=== PATIENT | female | born 1965 | race Caucasian/White ===

== ENCOUNTER 2021-12-22 11:52 | Emergency (ER) | payer BC ==
[2021-12-22 12:07] VITALS: BMI 23.3
[2021-12-22] MEDS ORDERED: BEBTELOVIMAB (EUA) 175 MG/2 ML VIAL IVPUSH ONE (12:45)
[2021-12-22] MEDS ORDERED: ACETAMINOPHEN 1000 MG/100 ML BAG IVPB ONE (12:46)
[2021-12-22] MEDS ORDERED: SODIUM CHLORIDE 0.9% 500 ML INFUS.BAG IV ONE (12:46)
[2021-12-22] MEDS ORDERED: ACETAMINOPHEN INJECTION 100 ML IVPB ONE (13:48)
[2021-12-22 15:33] VITALS: BP 143/89; PULSE 60; TEMP 98.3
== END 2021-12-22 15:33 | disposition home or self-care (01) ==
LOC: JER 11:52 → JCOVINFU 11:52
PROC: 3E033GC Introduction of Other Therapeutic Substance into Peripheral Vein, Percutaneous Approach (ICD-10-PCS; principal; 2021-12-22)
DX: U07.1 COVID-19 (principal)
CPT/HCPCS: 99284-25; M0222; Q0222

== ENCOUNTER 2023-09-08 12:46 | Emergency (ER) | payer BC ==
[2023-09-08 12:52] VITALS: BP 120/61; PULSE 74; RESP 18; TEMP 98.6; BMI 23.8
[2023-09-08] MEDS ORDERED: IBUPROFEN 600 MG TABLET (FP) PO ONE (13:44)
[2023-09-08] MEDS: IBUPROFEN 600 MG TABLET (FP) PO ONE (13:46)
== END 2023-09-08 13:52 | disposition home or self-care (01) ==
LOC: JERFT 12:46
DX: J02.9 Acute pharyngitis, unspecified (principal)
CPT/HCPCS: 87651

== ENCOUNTER 2024-01-30 15:51 | Emergency (ER) | payer BC ==
[2024-01-30 16:06] VITALS: BP 131/75; PULSE 65; RESP 14; TEMP 98; BMI 22.8
[2024-01-30] MEDS ORDERED: DOXYCYCLINE HYCLATE 100 MG CAPSULE PO ONE (16:32)
[2024-01-30] MEDS: DOXYCYCLINE HYCLATE 100 MG CAPSULE PO ONE (16:35)
== END 2024-01-30 16:57 | disposition home or self-care (01) ==
LOC: JERFT 15:51 → JER 15:51 → JERFT 16:57
DX: R21 Rash and other nonspecific skin eruption (principal)
CPT/HCPCS: 99283-25